=== PATIENT | male | born 1980 | race Caucasian/White ===

== ENCOUNTER 2019-03-18 13:48 | Emergency (ER) | payer OTHER ==
--- NOTE | 2019-03-18 13:49 | ER Report ---
History and Physical Time Seen By MD: 13:49 HPI/ROS CHIEF COMPLAINT: Neck pain, paresthesias in the distal left upper extremity HISTORY OF PRESENT ILLNESS: Patient is a 39-year-old male who was involved in a horse accident on . Patient is amnestic to the event and suspects that his horse stepped in a prairie dog hole. Patient suspects that the horse rolled on top of him. Patient has been complaining of lower cervical neck pain since time of incident, patient also describes vague paresthesias of the left upper extremity extending from the proximal left arm into the distal digits. Patient has intact strength at time of evaluation, reflexes were intact in the upper extremities. Patient denies bowel or bladder incontinence, abdominal pain, lower back pain. REVIEW OF SYSTEMS: Constitutional: No fever, no chills. Eyes: No discharge. ENT: No sore throat or loose dentition Cardiovascular: No chest pain, no palpitations. Respiratory: No cough, no shortness of breath. Gastrointestinal: No abdominal pain, no vomiting. Genitourinary: No hematuria, bowel or bladder incontinence Musculoskeletal: + Lower cervical midline tenderness, no obvious deformity or step-offs Skin: No rashes. Neurological: + Paresthesias in the left upper extremity to the distal digits, capillary refill less than 2 seconds, motor strength intact, reflexes intact Allergies: Coded Allergies: Penicillins (Verified Allergy, Unknown, 03/18/19) Constitutional Vital Sign - Last 24 Hours 03/18/19 03/18/19 03/18/19 03/18/19 13:48 13:55 13:55 14:03 Temp 98.5 Pulse 52 54 54 Resp 16 B/P (MAP) 150/120 150/120 (130) Pulse Ox 97 93 O2 Delivery Room Air 03/18/19 03/18/19 03/18/19 03/18/19 14:18 14:20 14:30 14:33 Pulse 53 48 Resp 7 B/P (MAP) 142/97 (112) Pulse Ox 96 96 O2 Flow Rate 2.0 Physical Exam General Appearance: The patient is alert, has no immediate need for airway protection and no signs of toxicity. Uncomfortable appearing Eyes: Pupils equal and round no pallor or injection. ENT, Mouth: Mucous membranes are moist. Respiratory: There are no retractions, lungs are clear to auscultation. Cardiovascular: Regular rate and rhythm. Gastrointestinal: Abdomen is soft and non tender, no masses, bowel sounds normal. Neurological: Neurovascular exam intact in the distal upper extremities with intact motor strength, reflexes with mild paresthesias throughout the entire left upper extremity to the distal digits, more pronounced in the 2nd 3rd and 4th digits Skin: Warm and dry, no rashes. Musculoskeletal: + Tenderness on palpation of the lower cervical region with no step-offs or bony deformities on palpation Extremities are nontender, nonswollen and have full range of motion. [ ] DIFFERENTIAL DIAGNOSIS: After history and physical exam differential diagnosis was considered for fracture, contusion, cord contusion, intracranial bleed, pneumothorax Medical Decision Making Data Points Result Diagram: 03/18/19 1406 03/18/19 1406 Laboratory Hematology Test 03/18/19 14:06 03/18/19 16:30 Red Blood Count 4.86 M/uL (4.00-5.60) Mean Corpuscular Volume 92.5 fL (80.0-96.0) Mean Corpuscular Hemoglobin 31.2 pg (26.0-33.0) Mean Corpuscular Hemoglobin Concent 33.7 g/dL (32.0-36.0) Red Cell Distribution Width 13.9 % (11.5-14.5) Mean Platelet Volume 7.7 fL (7.2-11.1) Neutrophils (%) (Auto) 59.5 % (39.4-72.5) Lymphocytes (%) (Auto) 33.3 % (17.6-49.6) Monocytes (%) (Auto) 5.7 % (4.1-12.4) Eosinophils (%) (Auto) 0.9 % (0.4-6.7) Basophils (%) (Auto) 0.6 % (0.3-1.4) Nucleated RBC Relative Count (auto) 0.0 /100WBC Neutrophils # (Auto) 4.7 K/uL (2.0-7.4) Lymphocytes # (Auto) 2.6 K/uL (1.3-3.6) Monocytes # (Auto) 0.4 K/uL (0.3-1.0) Eosinophils # (Auto) 0.1 K/uL (0.0-0.5) Basophils # (Auto) 0.0 K/uL (0.0-0.1) Nucleated RBC Absolute Count (auto) 0.00 K/uL Prothrombin Time 12.1 seconds (12.0-14.4) Prothromb Time International Ratio 0.90 Activated Partial Thromboplast Time 29 seconds (23-35) Sodium Level 144 mmol/L (137-145) Potassium Level 3.9 mmol/L (3.5-5.0) Chloride Level 107 mmol/L (98-107) Carbon Dioxide Level 25 mmol/L (22-30) Blood Urea Nitrogen 7 mg/dl (9-21) Creatinine 0.80 mg/dl (0.66-1.25) Glomerular Filtration Rate Calc > 60.0 Random Glucose 89 mg/dl (75-110) Lactate 1.7 mmol/L (0.7-2.1) Calcium Level 9.0 mg/dl (8.4-10.2) Total Bilirubin 1.4 mg/dl (0.2-1.3) Aspartate Amino Transf (AST/SGOT) 35 U/L (0-35) Alanine Aminotransferase (ALT/SGPT) 32 U/L (0-56) Alkaline Phosphatase 62 U/L (0-126) Total Protein 7.6 g/dl (6.3-8.2) Albumin 4.5 g/dl (3.5-5.0) Lipase 120 U/L (23-300) Serum Alcohol 153 mg/dl Chemistry Test 03/18/19 14:06 03/18/19 16:30 White Blood Count 7.8 k/uL (4.5-11.0) Red Blood Count 4.86 M/uL (4.00-5.60) Hemoglobin 15.2 g/dL (14.0-18.0) Hematocrit 44.9 % (42.0-52.0) Mean Corpuscular Volume 92.5 fL (80.0-96.0) Mean Corpuscular Hemoglobin 31.2 pg (26.0-33.0) Mean Corpuscular Hemoglobin Concent 33.7 g/dL (32.0-36.0) Red Cell Distribution Width 13.9 % (11.5-14.5) Platelet Count 288 K/uL (150-450) Mean Platelet Volume 7.7 fL (7.2-11.1) Neutrophils (%) (Auto) 59.5 % (39.4-72.5) Lymphocytes (%) (Auto) 33.3 % (17.6-49.6) Monocytes (%) (Auto) 5.7 % (4.1-12.4) Eosinophils (%) (Auto) 0.9 % (0.4-6.7) Basophils (%) (Auto) 0.6 % (0.3-1.4) Nucleated RBC Relative Count (auto) 0.0 /100WBC Neutrophils # (Auto) 4.7 K/uL (2.0-7.4) Lymphocytes # (Auto) 2.6 K/uL (1.3-3.6) Monocytes # (Auto) 0.4 K/uL (0.3-1.0) Eosinophils # (Auto) 0.1 K/uL (0.0-0.5) Basophils # (Auto) 0.0 K/uL (0.0-0.1) Nucleated RBC Absolute Count (auto) 0.00 K/uL Prothrombin Time 12.1 seconds (12.0-14.4) Prothromb Time International Ratio 0.90 Activated Partial Thromboplast Time 29 seconds (23-35) Glomerular Filtration Rate Calc > 60.0 Lactate 1.7 mmol/L (0.7-2.1) Calcium Level 9.0 mg/dl (8.4-10.2) Total Bilirubin 1.4 mg/dl (0.2-1.3) Aspartate Amino Transf (AST/SGOT) 35 U/L (0-35) Alanine Aminotransferase (ALT/SGPT) 32 U/L (0-56) Alkaline Phosphatase 62 U/L (0-126) Total Protein 7.6 g/dl (6.3-8.2) Albumin 4.5 g/dl (3.5-5.0) Lipase 120 U/L (23-300) Serum Alcohol 153 mg/dl Coagulation Test 03/18/19 14:06 Prothrombin Time 12.1 seconds Prothromb Time International Ratio 0.90 Activated Partial Thromboplast Time 29 seconds Toxicology Test 03/18/19 14:06 Serum Alcohol 153 mg/dl Urinalysis Test 03/18/19 16:30 EKG/Imaging Imaging PATIENT NAME: Clovis Phelps : 1980 MR: [id number] V: [id number] EXAM DATE: ORDERING PHYSICIAN: MICHAEL AVILA TECHNOLOGIST: Location: [facility] [place] Patient: Clovis Phelps : 1980 Visit/Account:[id number] Date of Sevice: 03/18/2019 EXAMINATION: CT HEAD AND CERVICAL SPINE WITHOUT CONTRAST COMPARISON: None available HISTORY: Trauma. Fall from horse. PROCEDURE: Noncontrast CT from the vertex through the skull base and multiplanar noncontrast cervical spine. One of the following dose optimization techniques was utilized in the performance of this exam: Automated exposure control; adjustment of the mA and/or kV according to the patient's size; or use of an it erative reconstruction technique. Specific details can be referenced in the facility's radiology CT exam operational policy. FINDINGS: CT head without contrast: Brain volume: Age-appropriate. Hemorrhage/extra-axial fluid: None. Mass effect/midline shift/edema: None. Ischemia: Max-white differentiation is preserved. Ventricles and basal cisterns: Within normal limits. Posterior fossa: Negative. Vessels: Negative. Calvarium, skull base, and scalp: Negative. Visualized sinuses and orbits: Left lobe postoperative change. No acute findings. CT cervical spine without contrast: Alignment: Within normal limits. Cranio-cervical junction: Within normal limits. Vertebral bodies: C7 fracture through the left lateral vertebral body which extends into the pedicle and facets. No vertebral body height loss or malalignment at this level. No other vertebral body fractures identified. Posterior elements: C7 left facet joint fracture as described above. Facet alignment is within normal limits. No other posterior neural arch fracture. Disc spaces: C5-C6 mild degenerative disc disease. No definite canal narrowing. Hardware: None. Soft tissues: Mild soft tissue swelling in the deep soft tissues adjacent to the C7 fracture. Visualized upper chest: Left second rib posterior nondisplaced fracture. IMPRESSION: 1. No evidence of acute intracranial trauma. 2. C7 nondisplaced fracture involving the left lateral vertebral body and extending into the pedicles and facets. No vertebral body height loss or malalignment. 3. Left second posterior rib nondisplaced fracture. PATIENT NAME: Clovis Phelps : 1980 MR: [id number] V: [id number] EXAM DATE: [id number] ORDERING PHYSICIAN: MICHAEL AVILA TECHNOLOGIST: Location: [facility] [place] Patient: Clovis Phelps : 1980 Visit/Account:[id number] Date of Sevice: 03/18/2019 ADDENDUM #1 ADDENDUM: IMPRESSION 4: Hepatic 3.1 x 2.8 x 4.0 cm hypervascular lesion. This is incompletely evaluated on this study and further characterization by nonemergent MRI with and without contrast is recommended. Although indeterminate, a traumatic laceration is considered unlikely. Results were discussed with MICHAEL AVILA at 03/18/2019 3:58 PM. Report Dictated By: Aguila Quigley MD at 03/18/2019 3:55 PM Report E-Signed By: Aguila Quigley MD at 03/18/2019 3:58 PM ORIGINAL REPORT Examination: CT chest, abdomen, and pelvis with contrast Comparison: None. History: Trauma. Fell off horse. Numbness and tingling. Procedure: Multiplanar contrast-enhanced imaging of the chest, abdomen, and pelvis with 100 mL intravenous Isovue 370. One of the following dose optimization techniques was utilized in the performance of this exam: Automated exposure control; adjustment of the mA and/or kV according to the patient's size; or use of an iterative reconstruction technique. Specific details can be referenced in the facility's radiology CT exam operational policy. Findings: CT chest: Mediastinum: Cardiac chamber size is normal. No pericardial effusion. Main pulmonary artery size is normal. No thoracic aortic aneurysm. Minimal residual anterior mediastinal thymus. No mediastinal hemorrhage. Lymph nodes: Negative. Lungs and pleura: Mild dependent atelectasis. No consolidation. Left upper lobe solitary 3 mm nodule. No pneumothorax, edema, or effusion. Airways: Negative. Diaphragm: Intact. CT abdomen and pelvis: Liver: Subtle approximately 3.1 x 2.8 x 4.0 cm hypervascular region in the central right hepatic lobe. The remainder of the hepatic parenchyma is homogeneous. No perihepatic fluid. Gallbladder and biliary system: Negative Spleen: Negative Pancreas: Negative Adrenal glands: Negative Kidneys and urinary bladder: Negative Vessels: Negative Bowel and mesentery: Stomach, small bowel, and appendix are within normal l imits. Minimal stool in the colon. There are a few colonic diverticula. No bowel or mesenteric inflammation. Pelvic organs: Negative. Free air/free fluid: None Lymph nodes: Negative Abdominal wall and subcutaneous tissues: Abdominal wall is intact. No focal abnormality within the visualized subcutaneous soft tissues. Osseous structures: Thoracolumbar spine: No vertebral body malalignment. Mild endplate concavity at T3, T4, T5, and T7 but no definite cortical disruption or trabecular nilda drew. Minor degenerative changes noted at multiple levels. Pelvic ring: Negative Ribs: Negative Visualized sternum, scapula, and clavicles: Negative IMPRESSION: 1. Mild age-indeterminate endplate concavity at T3, T4, T5, and T7. This is favored to be chronic although correlation with any clinical evidence of acute thoracic trauma is recommended with further evaluation by MRI as clinically deepa cated. 2. Left second rib posterior nondisplaced fracture. 3. No other findings of trauma or acute disease in the chest, abdomen, or pelvis. FACILITY: [facility] [place] PATIENT NAME: Clovis Phelps : 1980 MR: [id number] V: [id number] EXAM DATE: ORDERING PHYSICIAN: MICHAEL AVILA TECHNOLOGIST: Location: [facility] [place] Patient: Clovis Phelps : 1980 Visit/Account:[id number] Date of Sevice: 03/18/2019 EXAMINATION: CT HEAD AND CERVICAL SPINE WITHOUT CONTRAST COMPARISON: None available HISTORY: Trauma. Fall from horse. PROCEDURE: Noncontrast CT from the vertex through the skull base and multiplanar noncontrast cervical spine. One of the following dose optimization techniques was utilized in the performance of this exam: Automated exposure control; adjustment of the mA and/or kV according to the patient's size; or use of an iterative reconstruction technique. Specific details can be referenced in the facility's radiology CT exam operational policy. FINDINGS: CT head without contrast: Brain volume: Age-appropriate. Hemorrhage/extra-axial fluid: None. Mass effect/midline shift/edema: None. Ischemia: Max-white differentiation is preserved. Ventricles and basal cisterns: Within normal limits. Posterior fossa: Negative. Vessels: Negative. Calvarium, skull base, and scalp: Negative. Visualized sinuses and orbits: Left lobe postoperative change. No acute findings. CT cervical spine without contrast: Alignment: Within normal limits. Cranio-cervical junction: Within normal limits. Vertebral bodies: C7 fracture through the left lateral vertebral body which extends into the pedicle and facets. No vertebral body height loss or malalignment at this level. No other vertebral body fractures identified. Posterior elements: C7 left facet joint fracture as described above. Facet alignment is within normal limits. No other posterior neural arch fracture. Disc spaces: C5-C6 mild degenerative disc disease. No definite canal narrowing. Hardware: None. Soft tissues: Mild soft tissue swelling in the deep soft tissues adjacent to the C7 fracture. Visualized upper chest: Left second rib posterior nondisplaced fracture. IMPRESSION: 1. No evidence of acute intracranial trauma. 2. C7 nondisplaced fracture involving the left lateral vertebral body and extending into the pedicles and facets. No vertebral body height loss or malalignment. 3. Left second posterior rib nondisplaced fracture. ED Course/Re-evaluation ED Course Patient is a 39-year-old male who was involved in a horse rollover in which she was amnestic to the events. The traumatic incident took place on and the patient has been complaining of paresthesias in the left upper extremity, neck pain since that time. Patient had intact motor strength, reflexes in the le ft upper extremity however he didn't describe paresthesias from the proximal to the distal extremity more pronounced in the 2nd 3rd and 4th digits. E fast was negative. CT trauma scan was completed after the patient was given fentanyl, ketamine for analgesia. Labs were unremarkable. CT imaging showed a C7 fracture and a similar distribution consistent with his left upper extremity paresthesias. Cervical collar was in place throughout the entirety of evaluation. I discussed the patient with Dr. Mcgowan at [facility] who accepted the patient in transfer for traumatic evaluation. Patient was stable at time of transfer. Decision to Disposition Date: Mar 18, 2019 Decision to Disposition Time: 16:00 Depart Departure Latest Vital Signs Vital Signs Date Time Temp Pulse Resp B/P (MAP) Pulse Ox O2 Delivery O2 Flow Rate FiO2 03/18/19 14:33 48 7 96 03/18/19 14:30 142/97 (112) 03/18/19 14:20 2.0 03/18/19 13:55 98.5 Room Air Impression: Primary Impression: C7 cervical fracture Additional Impression: Rib fracture Condition: Condition Unchanged Disposition: [facility] TO [facility] Problem Qualifiers MICHAEL AVILA DO Mar 18, 2019 13:49
[2019-03-18] MEDS ORDERED: NS(*) 0.9% 1000 ML BAG 1,000 ML IV ONE (13:59)
[2019-03-18] MEDS ORDERED: DIPHTH/TETANUS/ACEL. PERTUSSIS IM ONE (14:00)
[2019-03-18] MEDS ORDERED: fentaNYL CITR 100 MCG/2 ML AMP IVP ONE (14:00)
[2019-03-18] MEDS ORDERED: ONDANSETRON 4 MG/2 ML VIAL IVP ONE (14:00)
[2019-03-18 14:18] LABS: PLATELET COUNT, AUTOMATED 288 K/uL (150-450)
[2019-03-18 14:24] LABS: INR 0.9
[2019-03-18] MEDS ORDERED: IOPAMIDOL 76% 150 ML INFUS BTL 150 ML ONE (14:40)
[2019-03-18] MEDS ORDERED: KETAMINE HCL-NS 50 MG/5 ML SYR IVP ONE (15:25)
--- NOTE | 2019-03-18 15:42 | RADIOLOGY IMAGING REPORT ---
FACILITY[place] [facility] [place] PATIENT NAME: Clovis Phelps : 1980 MR: [id number] V: [id number] EXAM DATE: ORDERING PHYSICIAN: MICHAEL AVILA TECHNOLOGIST: [place] [facility] [place] Patient: Clovis Phelps : 1980 Visit/Account:[id number] Date of Sevice: 03/18/2019 ADDENDUM #1 ADDENDUM: IMPRESSION 4: Hepatic 3.1 x 2.8 x 4.0 cm hypervascular lesion. This is incompletely evaluated on this study and further characterization by nonemergent MRI with and without contrast is recommended. Alth ough indeterminate, a traumatic laceration is considered unlikely. Results were discussed with MICHAEL AVILA at 03/18/2019 3:58 PM. Report Dictated By: Aguila Quigley MD at 03/18/2019 3:55 PM Report E-Signed By: Aguila Quigley MD at 03/18/2019 3:58 PM ORIGINAL REPORT Examination: CT chest, abdomen, and pelvis with contrast Comparison: None. History: Trauma. Fell off horse. Numbness and tingling. Procedure: Multiplanar contrast-enhanced imaging of the chest, abdomen, and pelvis with 100 mL intrav enous Isovue 370. One of the following dose optimization techniques was utilized in the performance o f this exam: Automated exposure control; adjustment of the mA and/or kV according to the patient's si ze; or use of an iterative reconstruction technique. Specific details can be referenced in the [facility]'s radiology CT exam operational policy. Findings: CT chest: Mediastinum: Cardiac chamber size is normal. No pericardial effusion. Main pulmonary artery size is n ormal. No thoracic aortic aneurysm. Minimal residual anterior mediastinal thymus. No mediastinal hemo rrhage. Lymph nodes: Negative. Lungs and pleura: Mild dependent atelectasis. No consolidation. Left upper lobe solitary 3 mm nodule. No pneumothorax, edema, or effusion. Airways: Negative. Diaphragm: Intact. CT abdomen and pelvis: Liver: Subtle approximately 3.1 x 2.8 x 4.0 cm hypervascular region in the central right hepatic lobe . The remainder of the hepatic parenchyma is homogeneous. No perihepatic fluid. Gallbladder and biliary system: Negative Spleen: Negative Pancreas: Negative Adrenal glands: Negative Kidneys and urinary bladder: Negative Vessels: Negative Bowel and mesentery: Stomach, small bowel, and appendix are within normal limits. Minimal stool in th e colon. There are a few colonic diverticula. No bowel or mesenteric inflammation. Pelvic organs: Negative. Free air/free fluid: None Lymph nodes: Negative Abdominal wall and subcutaneous tissues: Abdominal wall is intact. No focal abnormality within the v isualized subcutaneous soft tissues. Osseous structures: Thoracolumbar spine: No vertebral body malalignment. Mild endplate concavity at T3, T4, T5, and T7 bu t no definite cortical disruption or trabecular compression. Minor degenerative changes noted at mult iple levels. Pelvic ring: Negative Ribs: Negative Visualized sternum, scapula, and clavicles: Negative IMPRESSION: 1. Mild age-indeterminate endplate concavity at T3, T4, T5, and T7. This is favored to be chronic alt junior correlation with any clinical evidence of acute thoracic trauma is recommended with further aida luation by MRI as clinically indicated. 2. Left second rib posterior nondisplaced fracture. 3. No other findings of trauma or acute disease in the chest, abdomen, or pelvis. Results were discussed with MICHAEL AVILA at 03/18/2019 3:36 PM. Report Dictated By: Aguila Quigley MD at 03/18/2019 3:13 PM Report E-Signed By: Aguila Quigley MD at 03/18/2019 3:39 PM WSN:[id number]
--- NOTE | 2019-03-18 15:43 | RADIOLOGY IMAGING REPORT ---
FACILITY: [facility] PATIENT NAME: Clovis Phelps : 1980 MR: [id number] V: [id number] EXAM DATE: ORDERING PHYSICIAN: MICHAEL AVILA TECHNOLOGIST: Location: [facility] Patient: Clovis Phelps : 1980 Visit/Account:[id number] Date of Sevice: 03/18/2019 EXAMINATION: CT HEAD AND CERVICAL SPINE WITHOUT CONTRAST COMPARISON: None available HISTORY: Trauma. Fall from horse. PROCEDURE: Noncontrast CT from the vertex through the skull base and multiplanar noncontrast cervical spine. One of the following dose optimization techniques was utilized in the performance of this exa m: Automated exposure control; adjustment of the mA and/or kV according to the patient's size; or use of an iterative reconstruction technique. Specific details [facility] be [facility] the [facility] FINDINGS: CT head without contrast: Brain volume: Age-appropriate. Hemorrhage/extra-axial fluid: None. Mass effect/midline shift/edema: None. Ischemia: Max-white differentiation is preserved. Ventricles and basal cisterns: Within normal limits. Posterior fossa: Negative. Vessels: Negative. Calvarium, skull base, and scalp: Negative. Visualized sinuses and orbits: Left lobe postoperative change. No acute findings. CT cervical spine without contrast: Alignment: Within normal limits. Cranio-cervical junction: Within normal limits. Vertebral bodies: C7 fracture through the left lateral vertebral body which extends into the pedicle and facets. No vertebral body height loss or malalignment at this level. No other vertebral body frac tures identified. Posterior elements: C7 left facet joint fracture as described above. Facet alignment is within normal limits. No other posterior neural arch fracture. Disc spaces: C5-C6 mild degenerative disc disease. No definite canal narrowing. Hardware: None. Soft tissues: Mild soft tissue swelling in the deep soft tissues adjacent to the C7 fracture. Visualized upper chest: Left second rib posterior nondisplaced fracture. IMPRESSION: 1. No evidence of acute intracranial trauma. 2. C7 nondisplaced fracture involving the left lateral vertebral body and extending into the pedicles and facets. No vertebral body height loss or malalignment. 3. Left second posterior rib nondisplaced fracture. Results were discussed with MICHAEL AVILA at 03/18/2019 3:36 PM. Report Dictated By: Aguila Quigley MD at 03/18/2019 3:24 PM Report E-Signed By: Aguila Quigley MD at 03/18/2019 3:38 PM WSN:[id number]
--- NOTE | 2019-03-18 15:43 | RADIOLOGY IMAGING REPORT ---
FACILITY: [facility] PATIENT NAME: Clovis Phelps : 1980 MR: [id number] V: [id number] EXAM DATE: ORDERING PHYSICIAN: IMCHAEL AVILA TECHNOLOGIST: Location: [facility] [place] Patient: Clovis Phelps : 1980 Visit/Account:[id number] Date of Sevice: 03/18/2019 EXAMINATION: CT HEAD AND CERVICAL SPINE WITHOUT CONTRAST COMPARISON: None available HISTORY: Trauma. Fall from horse. PROCEDURE: Noncontrast CT from the vertex through the skull base and multiplanar noncontrast cervical spine. One of the following dose optimization techniques was utilized in the performance of this exa m: Automated exposure control; adjustment of the mA and/or kV according to the patient's size; or use of an iterative reconstruction technique. Specific details can be referenced in the facility's [facility] exam operational policy. FINDINGS: CT head without contrast: Brain volume: Age-appropriate. Hemorrhage/extra-axial fluid: None. Mass effect/midline shift/edema: None. Ischemia: Max-white differentiation is preserved. Ventricles and basal cisterns: Within normal limits. Posterior fossa: Negative. Vessels: Negative. Calvarium, skull base, and scalp: Negative. Visualized sinuses and orbits: Left lobe postoperative change. No acute findings. CT cervical spine without contrast: Alignment: Within normal limits. Cranio-cervical junction: Within normal limits. Vertebral bodies: C7 fracture through the left lateral vertebral body which extends into the pedicle and facets. No vertebral body height loss or malalignment at this level. No other vertebral body frac tures identified. Posterior elements: C7 left facet joint fracture as described above. Facet alignment is within normal limits. No other posterior neural arch fracture. Disc spaces: C5-C6 mild degenerative disc disease. No definite canal narrowing. Hardware: None. Soft tissues: Mild soft tissue swelling in the deep soft tissues adjacent to the C7 fracture. Visualized upper chest: Left second rib posterior nondisplaced fracture. IMPRESSION: 1. No evidence of acute intracranial trauma. 2. C7 nondisplaced fracture involving the left lateral vertebral body and extending into the pedicles and facets. No vertebral body height loss or malalignment. 3. Left second posterior rib nondisplaced fracture. Results were discussed with MICHAEL AVILA at 03/18/2019 3:36 PM. Report Dictated By: Aguila Quigley MD at 03/18/2019 3:24 PM Report E-Signed By: Aguila Quigley MD at 03/18/2019 3:38 PM WSN:[id number]
[2019-03-18 16:00] VITALS: BP 157/100
== END 2019-03-18 17:30 | disposition short-term general hospital (02) ==
LOC: ER 14:06
DX: S12.601A Unspecified nondisplaced fracture of seventh cervical vertebra, initial encounter for closed fracture (principal); S22.32XA Fracture of one rib, left side, initial encounter for closed fracture; Y93.52 Activity, horseback riding
CPT/HCPCS: 70450; 71260; 72125; 74177; 80320; 81001; 83605; 83690; 85025; 85610; 85730; 90471; 90715; 96361; 96374; 96375; 99285; J2405; J3010; J3490; J7030; L0172; Q9967; 82040; 82247; 82310; 82374; 82435; 82565; 82947; 84075; 84132; 84155; 84295; 84450; 84460; 84520

== ENCOUNTER → 2019-03-18 | Outpatient (CLI) | payer OTHER | LOC: AMB 17:21 | PROVIDERS: ATTEND Nurse Practitioner | DX: S12.600A Unspecified displaced fracture of seventh cervical vertebra, initial encounter for closed fracture (principal); S22.32XA Fracture of one rib, left side, initial encounter for closed fracture; Y93.52 Activity, horseback riding | CPT/HCPCS: A0425; A0426 ==